=== PATIENT | male | born 1985 | race Caucasian/White ===

== ENCOUNTER → 2024-09-26 | Outpatient (CLI) | payer OTHER ==
[~2024-09-26] MED LIST: CYCL10 PO; IBUHYD PO; OMEP20ER PO; ONDA4ODT MM; RXOXYACE PO
[2024-09-26 14:03] LABS: Chlamydia Trachomatis Urine NOT DETECTED (NOT DETECT); Neisseria Gonorrhoea Urine NOT DETECTED (NOT DETECT)
== END | disposition home or self-care (01) ==
LOC: LAB SHORT 11:33 → LAB 11:33
PROVIDERS: Physician Assistant Medical
DX: N50.812 Left testicular pain (principal)
CPT/HCPCS: 87491; 87591